=== PATIENT | male | born 1990 | race Caucasian/White ===

== ENCOUNTER 2016-07-12 18:13 | Observation (INO) | payer OTHER ==
[2016-07-12] MEDS ORDERED: VANCOMYCIN HCL/NORMAL SALINE 250 ML IV ONE (18:33)
--- NOTE | 2016-07-12 18:36 | EDPHY ---
H & P Time Seen by Provider: 07/12/16 18:20 HPI/ROS: CHIEF COMPLAINT: Right foot and ankle redness and swelling HISTORY OF PRESENT ILLNESS: This 25-year-old man is otherwise healthy. No recent local trauma. No IV drug abuse. Starting yesterday he noticed pain redness and swelling on his right lateral ankle and foot. Symptoms are severe today and worse with weight-bearing or palpation. It is associated with subjective fevers and feeling dizzy and weak. Redness has spread up to his mid proximal calf. REVIEW OF SYSTEMS: Eye: no change in vision ENT: no sore throat Cardiac: no chest pain or syncope Pulmonary: no cough or SOB Abdomen: no vomiting, diarrhea, abdominal pain Musculoskeletal: HPI Skin: Redness over the ankle site. Neuro: Mild headache Constitutional: HPI : no urinary symptoms A comprehensive 10 point review of systems is otherwise negative aside from elements mentioned in the history of present illness. 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 Eyes: No scleral icterus. ENT, Mouth: Normal mucous membranes. Respiratory: Normal respiratory effort, breath sounds equal, lungs are clear to auscultation. Cardiovascular: Regular rate and rhythm. Gastrointestinal: Abdomen is soft and non tender. Neurological: Alert and oriented x3. Normally conversant. Face symmetric, normal movement and sensation in all extremities. Skin: Erythema and warmth and tenderness from the mid calf distally to the mid foot on the lateral side. No blisters or eschar or crepitus. No lymphangitis. Musculoskeletal: He does have right lower extremity edema and swelling from the mid calf to the mid foot but I can range his ankle joint without change of his pain. He is tender to palpation but compartments are soft. Psychiatric: Not agitated. Emergency Department course/MDM: Patient presents with cellulitis to the right lower extremity with a heart rate of 111 and systemic symptoms including fever and myalgias and chills. Plan for blood cultures, lactate, IV antibiotics and observation admission for IV antibiotics given severity of his symptoms. Smoking Status: Never smoked Constitutional: Initial Vital Signs Temperature (C) 37.2 C 07/12/16 18:17 Heart Rate 111 H 07/12/16 18:17 Respiratory Rate 18 07/12/16 18:17 Blood Pressure 166/91 H 07/12/16 18:17 O2 Sat (%) 96 07/12/16 18:17 O2 Delivery Mode Room Air Allergies/Adverse Reactions: No Allergies [NKDA] Allergy (Verified 07/12/16 20:16) Home Medications: Medication Instructions Recorded Emtricitabine/Tenofovir [Truvada 1 tab PO DAILY@19 07/12/16 200MG/300MG (*)] Medical Decision Making - Diagnostics Imaging Results: Imaging Impressions Extremity Venous Study 07/12/16 18:34 Impression: Normal bilateral venous Doppler study. Report telephoned to Dr. Ulices Adams at 2025 hours. Tibia/Fibula X-Ray 07/12/16 18:36 Impression: No fracture. Differential Diagnosis: Differential considered including but not limited to DVT, cellulitis, fasciitis , compartment syndrome, arterial occlusion. Consult/Admit Bed Type: [place] [id number] - Data Points Laboratory Results: Laboratory Results 07/12/16 18:40 07/12/16 18:40 07/12/16 07/12/16 07/12/16 18:40 18:40 18:40 WBC 15.95 10^3/uL H 10^3/uL (3.80-9.50) RBC 5.05 10^6/uL 10^6/uL (4.40-6.38) Hgb 16.1 g/dL g/dL (13.7-17.5) Hct 46.1 % % (40.0-51.0) MCV 91.3 fL fL (81.5-99.8) MCH 31.9 pg pg (27.9-34.1) MCHC 34.9 g/dL g/dL (32.4-36.7) RDW 11.7 % % (11.5-15.2) Plt Count 212 10^3/uL 10^3/uL (150-400) MPV 9.7 fL fL (8.7-11.7) Neut % (Auto) 73.3 % % (39.3-74.2) Lymph % (Auto) 17.2 % % (15.0-45.0) [place] % (Auto) 8.4 % % (4.5-13.0) Eos % (Auto) 0.4 % L % (0.6-7.6) Baso % (Auto) 0.1 % L % (0.3-1.7) Nucleat RBC Rel Count 0.0 % % (0.0-0.2) Absolute Neuts (auto) 11.69 10^3/uL H 10^3/uL (1.70-6.50) Absolute Lymphs (auto) 2.74 10^3/uL 10^3/uL (1.00-3.00) Absolute Monos (auto) 1.34 10^3/uL H 10^3/uL (0.30-0.80) Absolute Eos (auto) 0.07 10^3/uL 10^3/uL (0.03-0.40) Absolute Basos (auto) 0.02 10^3/uL 10^3/uL (0.02-0.10) Absolute Nucleated RBC 0.00 10^3/uL 10^3/uL (0-0.01) Immature Gran % 0.6 % % (0.0-1.1) Immature Gran # 0.09 10^3/uL 10^3/uL (0.00-0.10) PT 15.8 SEC H SEC (12.0-15.0) INR 1.26 H (0.83-1.16) APTT 37.3 SEC SEC (23.0-38.0) VBG Lactic Acid Sodium 136 mEq/L mEq/L (134-144) Potassium 4.2 mEq/L mEq/L (3.5-5.2) Chloride 98 mEq/L mEq/L (97-110) Carbon Dioxide 24 mEq/l mEq/l (22-31) Anion Gap 14 mEq/L mEq/L (8-16) BUN 18 mg/dL mg/dL (7-23) Creatinine 1.0 mg/dL mg/dL (0.7-1.3) Estimated GFR > 60 Glucose 100 mg/dL mg/dL (70-100) Calcium 9.9 mg/dL mg/dL (8.5-10.4) Total Bilirubin 1.5 mg/dL H mg/dL (0.1-1.4) 07/12/16 18:40 WBC RBC Hgb Hct MCV MCH MCHC RDW Plt Count MPV Neut % (Auto) Lymph % (Auto) [place] % (Auto) Eos % (Auto) Baso % (Auto) Nucleat RBC Rel Count Absolute Neuts (auto) Absolute Lymphs (auto) Absolute Monos (auto) Absolute Eos (auto) Absolute Basos (auto) Absolute Nucleated RBC Immature Gran % Immature Gran # PT INR APTT VBG Lactic Acid 1.0 mmol/L mmol/L (0.7-2.1) Sodium Potassium Chloride Carbon Dioxide Anion Gap BUN Creatinine Estimated GFR Glucose Calcium Total Bilirubin Medications Given: Discontinued Medications Vancomycin/Sodium Chloride (Vancomycin 1 Gm (Premix)) 250 mls @ 250 mls/hr IV EDNOW ONE PRN Reason: Protocol Stop: 07/12/16 19:32 Last Admin: 07/12/16 18:50 Dose: 250 mls Sodium Chloride (Ns) 1,000 mls @ 0 mls/hr IV ONCE ONE; Wide Open PRN Reason: Protocol Stop: 07/12/16 19:48 Last Admin: 07/12/16 20:04 Dose: 1,000 mls Sodium Chloride (Ns) 1,000 mls @ 0 mls/hr IV ONCE ONE; Wide Open PRN Reason: Protocol Stop: 07/12/16 19:48 Last Admin: 07/12/16 19:54 Dose: 1,000 mls Departure - Departure Disposition: [facility] Inpatient Acute Clinical Impression: Cellulitis of right leg Condition: Good
[2016-07-12 18:58] LABS: % IMMATURE GRANULYOCYTES 0.6 % (0.0-1.1); ABSOLUTE IMMATURE GRANULOCYTES 0.09 10^3/uL (0.00-0.10); ADD DIFF? NO; ADD MORPH? NO; ADD SCAN? NO; ATYPICAL LYMPHOCYTE FLAG 20 (0-99); FRAGMENT RBC FLAG 0 (0-99); HEMATOCRIT 46.1 % (40.0-51.0); HEMOGLOBIN 16.1 g/dL (13.7-17.5); LEFT SHIFT FLG 0 (0-99); LIPEMIA HEMOLYSIS FLAG 90 (0-99); MEAN CELL HEMOGLOBIN 31.9 pg (27.9-34.1); MEAN CELL HEMOGLOBIN CONCENTR. 34.9 g/dL (32.4-36.7); MEAN CELL VOLUME 91.3 fL (81.5-99.8); MEAN PLATELET VOLUME 9.7 fL (8.7-11.7); PLATELET CLUMPS FLAG 10 (0-99); PLATELET COUNT 212 10^3/uL (150-400); RED BLOOD CELL COUNT 5.05 10^6/uL (4.40-6.38); RED CELL DISTRIBUTION WIDTH 11.7 % (11.5-15.2)
[2016-07-12 19:06] LABS: INR 1.26 (0.83-1.16); PROTIME(PATIENT) 15.8 SEC (12.0-15.0)
[2016-07-12 19:07] LABS: APTT 37.3 SEC (23.0-38.0)
[2016-07-12 19:30] LABS: ANION GAP 14 mEq/L (8-16); BILIRUBIN,TOTAL 1.5 mg/dL (0.1-1.4); CALCIUM 9.9 mg/dL (8.5-10.4); CARBON DIOXIDE 24 mEq/l (22-31); CHLORIDE 98 mEq/L (97-110); GLOMERULAR FILTRATION RATE > 60; GLUCOSE 100 mg/dL (70-100); POTASSIUM 4.2 mEq/L (3.5-5.2); SODIUM 136 mEq/L (134-144)
[2016-07-12] MEDS ORDERED: NS 1,000 ML IV ONE ×2 (19:47)
[2016-07-12] MEDS ORDERED: ONDANSETRON 4 MG/2 ML VIAL IVP PRN (20:03)
[2016-07-12] MEDS ORDERED: IBUPROFEN 600 MG TAB PO PRN (20:03)
[2016-07-12] MEDS ORDERED: ACETAMINOPHEN 325 MG TAB PO PRN (20:03)
[2016-07-12] MEDS ORDERED: oxyCODONE IR 5 MG TAB PO PRN (20:03)
[2016-07-12] MEDS ORDERED: ONDANSETRON DISINTEGRATING 4 MG TAB PO PRN (20:03)
[2016-07-12] MEDS ORDERED: EMTRICITABINE/TENOFOVIR 200MG/300MG TAB PO SCH (20:07)
--- NOTE | 2016-07-12 20:16 | PDGENHP ---
History and Physical - Chief Complaint Acute foot pain - History of Present Illness PCP: None HPI: 25-year-old male presenting with acute foot pain located in the right ankle and distal calf with associated erythema, swelling, myalgias, subjective fever onset of symptoms on the day prior to this presentation and duration persistent worsening thereafter. Patient reports no precipitating trauma or skin abrasions and the area simply became a red swollen warm with the other after mentioned symptoms on the day prior to this presentation. He has not been taking any medication to treat this and he reports that the pain is significantly exacerbated by bearing weight on the right lower extremity, so much so that he is unable to walk today. He has never had similar skin infections. He denies any other skin lesions. History Information - Allergies/Home Medication List Allergies/Adverse Reactions: No Allergies [NKDA] Allergy (Verified 07/12/16 20:03) Home Medications: Emtricitabine/Tenofovir [Truvada 200MG/300MG (*)] 1 tab PO DAILY@19 07/12/16 [ Last Taken 07/11/16] I have personally reviewed and updated: family history, medical history, social history, surgical history - Past Medical History Additional medical history: Chlamydia infection approximately 6 months ago, treated, retested and was negative. Currently on PrEP - Surgical History Reports: no pertinent surgical hx - Family History Additional family history: no family history of arthritic disease - Social History Smoking Status: Never smoked Alcohol Use: None Drug Use: None Additional social history: patient is in [place] for 1 month, student support counselor for summer program, originally from [place] and [place] prior to that Review of Systems ROS: 10pt was reviewed & negative except for what was stated in HPI & below Constitutional: Reports: chills, fever, malaise Muscolosketal: Reports: joint pain, joint swelling Skin: Reports: other ( erythema) Physical Exam Temp Pulse Resp BP Pulse Ox 37.2 C 111 H 18 166/91 H 96 07/12/16 18:17 07/12/16 18:17 07/12/16 18:17 07/12/16 18:17 07/12/16 18:17 Constitutional: no apparent distress, appears nourished, not in pain Eyes: PERRL, anicteric sclera, EOMI Ears, Nose, Mouth, Throat: moist mucous membranes, hearing normal, ears appear normal, no oral mucosal ulcers Cardiovascular: regular rate and rhythym, no murmur, rub, or gallop, edema ( trace right lower extremity) Respiratory: no respiratory distress, no rales or rhonchi, clear to auscultation Gastrointestinal: normoactive bowel sounds, soft, non-tender abdomen, no palpable masses Skin: other ( erythema of right lower extremity circumferentially around the distal calf, overlying the right ankle most notably the lateral aspect, no skin abrasions noted, patient does have some skin scratches along the medial aspect of his right proximal upper extremity) Musculoskeletal: other ( painful active range of motion of the right ankle, less painful passive range of motion on plantar and dorsiflexion, pain with inversion of right foot) Neurologic: AAOx3, sensation intact bilaterally, No weakness ( motor strength 5/ 5 bilateral lower extremity) Psychiatric: interacting appropriately, not anxious, not encephalopathic, thought process linear Lymph, Heme, Immunologic: other ( shotty right inguinal lymphadenopathy without tenderness, palpable 1 cm bilateral submandibular lymph nodes without any tenderness) Lab Data & Imaging Review 07/12/16 18:40 07/12/16 18:40 WBC 15.95 10^3/uL (3.80-9.50) H 07/12/16 18:40 RBC 5.05 10^6/uL (4.40-6.38) 07/12/16 18:40 Hgb 16.1 g/dL (13.7-17.5) 07/12/16 18:40 Hct 46.1 % (40.0-51.0) 07/12/16 18:40 MCV 91.3 fL (81.5-99.8) 07/12/16 18:40 MCH 31.9 pg (27.9-34.1) 07/12/16 18:40 MCHC 34.9 g/dL (32.4-36.7) 07/12/16 18:40 RDW 11.7 % (11.5-15.2) 07/12/16 18:40 Plt Count 212 10^3/uL (150-400) 07/12/16 18:40 MPV 9.7 fL (8.7-11.7) 07/12/16 18:40 Neut % (Auto) 73.3 % (39.3-74.2) 07/12/16 18:40 Lymph % (Auto) 17.2 % (15.0-45.0) 07/12/16 18:40 [place] % (Auto) 8.4 % (4.5-13.0) 07/12/16 18:40 Eos % (Auto) 0.4 % (0.6-7.6) L 07/12/16 18:40 Baso % (Auto) 0.1 % (0.3-1.7) L 07/12/16 18:40 Nucleat RBC Rel Count 0.0 % (0.0-0.2) 07/12/16 18:40 Absolute Neuts (auto) 11.69 10^3/uL (1.70-6.50) H 07/12/16 18:40 Absolute Lymphs (auto) 2.74 10^3/uL (1.00-3.00) 07/12/16 18:40 Absolute Monos (auto) 1.34 10^3/uL (0.30-0.80) H 07/12/16 18:40 Absolute Eos (auto) 0.07 10^3/uL (0.03-0.40) 07/12/16 18:40 Absolute Basos (auto) 0.02 10^3/uL (0.02-0.10) 07/12/16 18:40 Absolute Nucleated RBC 0.00 10^3/uL (0-0.01) 07/12/16 18:40 Immature Gran % 0.6 % (0.0-1.1) 07/12/16 18:40 Immature Gran # 0.09 10^3/uL (0.00-0.10) 07/12/16 18:40 PT 15.8 SEC (12.0-15.0) H 07/12/16 18:40 INR 1.26 (0.83-1.16) H 07/12/16 18:40 APTT 37.3 SEC (23.0-38.0) 07/12/16 18:40 VBG Lactic Acid 1.0 mmol/L (0.7-2.1) 07/12/16 18:40 Sodium 136 mEq/L (134-144) 07/12/16 18:40 Potassium 4.2 mEq/L (3.5-5.2) 07/12/16 18:40 Chloride 98 mEq/L (97-110) 07/12/16 18:40 Carbon Dioxide 24 mEq/l (22-31) 07/12/16 18:40 Anion Gap 14 mEq/L (8-16) 07/12/16 18:40 BUN 18 mg/dL (7-23) 07/12/16 18:40 Creatinine 1.0 mg/dL (0.7-1.3) 07/12/16 18:40 Estimated GFR > 60 07/12/16 18:40 Glucose 100 mg/dL (70-100) 07/12/16 18:40 Calcium 9.9 mg/dL (8.5-10.4) 07/12/16 18:40 Total Bilirubin 1.5 mg/dL (0.1-1.4) H 07/12/16 18:40 Visualized and Interpreted Chest x-ray results: Yes Chest X-Ray results: other ( no gas in the soft tissues) Assessment & Plan Assessment: 25-year-old male presents with acute cellulitis of the right lower extremity Plan: 1. Cellulitis. Acute, new problem this provider, further workup indicated. Evidenced by erythema, edema, tenderness without clear precipitating cause, most likely secondary to either staphylococcal or streptococcal organisms, no history of MRSA or exposure - given severity and painful range of motion as well as proximity to the joint, patient has been given 1 dose of IV vancomycin for empiric broad-spectrum coverage and will gauge response - will plan on initiating oral Keflex in a.m. if patient has had a reasonable response but if not, IV vancomycin can be re-dosed tomorrow morning around 7:00 a.m. - blood cultures have been sent - patient is at risk for disseminated gonococcal infection given his past history of sexually transmitted disease as well as potentially high risk sexual activity - send general probe of chlamydia and gonorrhea, if positive, consider treating with 1 g IV ceftriaxone, 1 g IV azithromycin - continue to monitor for the a and p mechanic of any other skin lesions - he is currently on pre exposure prophylaxis so we will not check HIV at this time - I have discussed with Dr. Lior Kessler, he has reported to me that the ultrasound demonstrates no evidence of DVT - continue IV fluids, recheck CBC in a.m., monitor fever curve - patient does not currently have access to medical care in the [place] area and he will be here for the remainder the summer, recommend providing him with Infectious Disease Clinic contact information so that he can follow up in approximately 1 week if he is discharged on oral antibiotics Diet. Regular Prophylaxis. High risk patient Lovenox 40 Code. Full Disposition. Anticipated discharge 07/13/2016, pending further workup and stabilization of conditions outlined above.
[2016-07-12] MEDS: NS 1,000 ML IV SCH (23:22)
[2016-07-13 04:05] VITALS: O2SAT 96
[2016-07-13 04:30] LABS: % IMMATURE GRANULYOCYTES 0.2 % (0.0-1.1); ABSOLUTE IMMATURE GRANULOCYTES 0.02 10^3/uL (0.00-0.10); ADD DIFF? NO; ADD MORPH? NO; ADD SCAN? NO; ATYPICAL LYMPHOCYTE FLAG 0 (0-99); FRAGMENT RBC FLAG 0 (0-99); HEMATOCRIT 38.5 % (40.0-51.0); HEMOGLOBIN 13.4 g/dL (13.7-17.5); LEFT SHIFT FLG 0 (0-99); LIPEMIA HEMOLYSIS FLAG 90 (0-99); MEAN CELL HEMOGLOBIN 31.8 pg (27.9-34.1); MEAN CELL HEMOGLOBIN CONCENTR. 34.8 g/dL (32.4-36.7); MEAN CELL VOLUME 91.2 fL (81.5-99.8); MEAN PLATELET VOLUME 9.3 fL (8.7-11.7); PLATELET CLUMPS FLAG 0 (0-99); PLATELET COUNT 155 10^3/uL (150-400); RED BLOOD CELL COUNT 4.22 10^6/uL (4.40-6.38); RED CELL DISTRIBUTION WIDTH 11.9 % (11.5-15.2)
[2016-07-13 05:07] LABS: ALANINE AMINOTRANSFERASE 33 IU/L (21-72); ALBUMIN 3.7 g/dL (3.5-5.0); ALKALINE PHOSPHATASE 69 IU/L (38-126); ANION GAP 10 mEq/L (8-16); ASPARTATE AMINOTRANSFERASE 27 IU/L (17-59); BILIRUBIN,TOTAL 1.6 mg/dL (0.1-1.4); CALCIUM 8.7 mg/dL (8.5-10.4); CARBON DIOXIDE 25 mEq/l (22-31); CHLORIDE 105 mEq/L (97-110); GLOMERULAR FILTRATION RATE > 60; GLUCOSE 107 mg/dL (70-100); SODIUM 140 mEq/L (134-144); TOTAL PROTEIN 6.3 g/dL (6.3-8.2)
[2016-07-13] MEDS: CEPHALEXIN 500 MG CAP PO SCH ×2 (05:44→12:33)
[2016-07-13] MEDS: NS 1,000 ML IV SCH ×2 (05:45→09:41)
[2016-07-13 07:47] VITALS: BP 120/52; PULSE 82; RESP 18; TEMP 98.2
--- NOTE | 2016-07-13 08:24 | HOSPPROG ---
Hospitalist Progress Note Assessment/Plan: #Right leg cellulitis: improved with abx. Start PO Kelflex for 7 days -G&C pending. I will call him with results #Leukocytosis: resolved. #Tachycardia: resolved #Disp: DC today Subjective: pain and swelling improved Objective: Vital Signs Temp Pulse Resp BP Pulse Ox 36.8 C 82 18 120/52 L 96 07/13/16 07:45 07/13/16 07:45 07/13/16 07:45 07/13/16 07:45 07/13/16 07:45 Laboratory Results 07/13/16 04:04 07/13/16 04:04 07/12/16 07/13/16 07/14/16 05:59 05:59 05:59 Intake Total 2921 Balance 2921 PT 15.8 SEC (12.0-15.0) H 07/12/16 18:40 INR 1.26 (0.83-1.16) H 07/12/16 18:40 - Physical Exam Constitutional: no apparent distress Eyes: PERRL Ears, Nose, Mouth, Throat: moist mucous membranes Cardiovascular: regular rate and rhythym Respiratory: no respiratory distress Gastrointestinal: normoactive bowel sounds Skin: warm Musculoskeletal: other (left calf to fooot with mild erythema, swelling. TTP over dorsum foot. Min pain over joint and increased ROM per patient) Neurologic: AAOx3 Psychiatric: interacting appropriately ICD10 Worksheet Patient Problems: Problems Problem Status Onset Cellulitis of right leg Acute
[2016-07-13] MEDS ORDERED: ENOXAPARIN 40 MG/0.4 ML SYR SC SCH (09:00)
--- NOTE | 2016-07-13 11:55 | GDS ---
[f rep st] DISCHARGE SUMMARY DISCHARGE DIAGNOSES: 1. Right lower extremity cellulitis. 2. Leukocytosis. 3. Tachycardia. HISTORY OF PRESENT ILLNESS: The patient is a 25-year-old male, originally from [place], here for summer school at , presenting with redness and swelling in his right lateral ankle and foot. He denies any trauma or open lesion. The pain was worse today and he could not bear weight. He had subjective fevers, dizziness and weakness. The redness has now spread up to his mid calf. HOSPITAL COURSE BY PROBLEM: 1. Nonpurulent right lower extremity cellulitis. Started on IV vancomycin with improved symptoms today. Does not involve the ankle joint itself. Will transition to 7 days of Keflex. Recommend elevation and can use ice for comfort. Considered gonorrheal infection as well. GNC is pending. I will call patient with results. 2. Leukocytosis. White count was elevated at 15. This has resolved with IV antibiotics. 3. Tachycardia secondary to acute infection. This resolved with fluids as well. 4. HCM: counseled on safe sexual practices with condoms. He uses Truvada for ppx. Patient is stable for discharge. Followup: Patient should contact the health clinic at , or [facility], and this information has been provided. /[id number]/MODL MTDD
[2016-07-13 13:38] LABS: CHLAMYDIA AMPLIFICATION GENPRB NEGATIVE (NEGATIVE)
== END 2016-07-13 12:39 | disposition home or self-care (01) ==
LOC: INTOOBSV 19:49 → F1N 21:36
PROVIDERS: ADMIT Internal Medicine; ATTEND Internal Medicine
DX: L03.115 Cellulitis of right lower limb (principal); D72.829 Elevated white blood cell count, unspecified; R00.0 Tachycardia, unspecified
CPT/HCPCS: 73590; 93971; 96361; 96365; 99285; G0378; J1650; J3370